=== PATIENT | male | born 1945 | race Caucasian/White ===

== ENCOUNTER 2021-04-19 09:56 | Day surgery (SDC) | payer MEDICARE, SELFPAY ==
[2021-04-13 10:33] VITALS: BMI 31.4
--- NOTE | 2021-04-16 11:04 | P.CONAN_ITS ---
Documented by User: Sherrill Garcia 04/16/21 11:05 HPI - Anesthesia Eval Consult details Narrative: 76yo M for Upper Endoscopy and Colonoscopy [facility] Past Medical History Medical History Elevated cholesterol GERD (gastroesophageal reflux disease) HTN (hypertension) Hx of migraines Snores Surgical History Surgical History History of esophagogastroduodenoscopy (EGD) History of incisional hernia repair History of umbilical hernia repair Hx of appendectomy Hx of cholecystectomy Hx of colonoscopy Hx of eye surgery Hx of hemorrhoidectomy Hx of varicose vein ligation and stripping Social History Social History Patient Tobacco Use Status: Former Tobacco user Advance Directives: No Advance Directives Information Provided: No Advance Directives on File: No Meds Allergies Allergy/AdvReac Type Severity Reaction Status Date / Time No Known Allergies Allergy Unverified 06/18/20 15:59 [No Known Allergies*] Home Medications Medication Instructions Recorded Confirmed Last Taken Type amitriptyline 10 mg PO BEDTIME 04/13/21 04/13/21 Unknown History amlodipine 1 tab PO DAILY 04/13/21 04/13/21 Unknown History atorvastatin 1 tab PO DAILY 04/13/21 04/13/21 Unknown History clobetasol TOPICAL BID PRN 04/13/21 Unknown History labetalol 1 tab PO BID 04/13/21 04/13/21 04/19/21 07:00 History losartan-hydrochlorothiazide 1 tab PO DAILY 04/13/21 04/13/21 Unknown History pantoprazole 1 tab PO BID 04/13/21 04/19/21 Unknown History sucralfate 1 tab PO QID 04/13/21 04/13/21 Unknown History Exam Exam Date and Time: April 16, 2021 1104 Height,Weight and Vital Signs: Height 5 ft 10.5 in Weight 100.698 kg Assessment and Plan Assessment Anesthesia Assessment: Chart Reviewed Documented by User: Artie Espino 04/19/21 11:34 [facility] Past Medical History Medical History Elevated cholesterol GERD (gastroesophageal reflux disease) HTN (hypertension) Hx of migraines Snores Surgical History Surgical History History of esophagogastroduodenoscopy (EGD) History of incisional hernia repair History of umbilical hernia repair Hx of appendectomy Hx of cholecystectomy Hx of colonoscopy Hx of eye surgery Hx of hemorrhoidectomy Hx of varicose vein ligation and stripping Social History Social History Patient Tobacco Use Status: Former Tobacco user Advance Directives: No Advance Directives Information Provided: No Advance Directives on File: No Meds Allergies Allergy/AdvReac Type Severity Reaction Status Date / Time No Known Allergies Allergy Unverified 06/18/20 15:59 [No Known Allergies*] Home Medications Medication Instructions Recorded Confirmed Last Taken Type amitriptyline 10 mg PO BEDTIME 04/13/21 04/13/21 Unknown History amlodipine 1 tab PO DAILY 04/13/21 04/13/21 Unknown History atorvastatin 1 tab PO DAILY 04/13/21 04/13/21 Unknown History clobetasol TOPICAL BID PRN 04/13/21 Unknown History labetalol 1 tab PO BID 04/13/21 04/13/21 04/19/21 07:00 History losartan-hydrochlorothiazide 1 tab PO DAILY 04/13/21 04/13/21 Unknown History pantoprazole 1 tab PO BID 04/13/21 04/19/21 Unknown History sucralfate 1 tab PO QID 04/13/21 04/13/21 Unknown History Exam Airway Mallampati Class: III TM Dist: >3cm Neck ROM: Full Denture: Upper Heart: [id number] Lungs: cta b/l Assessment and Plan Assessment Anesthesia Assessment: Anesthesia Plan Discussed, PAT Visit and Chart Reviewed Final Anesthetic Review NPO: Yes ASA Class: III Final Preanesthetic Review: No Changes in Pt Med Stat, Meds/Allgs Chart Reviewed, Consent Obtained/Reviewed and Anes Risks/Benef Reviewed Patient Risk: Intermediate Procedure Risk: Low Assessment/Block/Sedation in SS: Assess/Block/Sedation-SS Anesthetic Plan Anesthetic Plan: MAC: and Agree w/ Assess. and Plan Disposition: Standard PACU
[2021-04-19 10:58] VITALS: BP 135/89; PULSE 64; RESP 16; TEMP 36.6; O2SAT 98
[2021-04-19] MEDS: Lactated Ringers 1,000 ML 100 ML IVCONT (11:09)
[2021-04-19 13:27] VITALS: BP 104/59; PULSE 58; RESP 12; TEMP 36.1; O2SAT 98
--- NOTE | 2021-04-19 13:30 | PM.OP ---
Brief Operative Note Date of Service: 04/19/21 Pre-op diagnosis: Chest discomfort, Screening Post-op diagnosis: other (Gastritis and Gastric polyps, Colon polyps) Procedure: EGD with biopsy, Colonoscopy to the cecum with snare polypectomy and Bx/removal of polyps Surgeon: Cruz Tam Anesthesia: MAC Was an [employer] Tele[employer] Clerk used for this Procedure?: No Estimated blood loss (mL): 4.0 Pathology: other (A. Gastric antrum B. Gastric polyps C. Ascending colon polyps D. Polyp near ICV) Condition: stable Disposition: PACU
--- NOTE | 2021-04-19 13:35 | PC.NURSE ---
DR. SHARP AT BEDSIDE. SPOKE WITH PATIENT REGARDING HIS PROCEDURE. PT AROUSABLE, BUT DROWSY. VSS. NO RESPIRATORY DISTRESS. NO SOB.
[2021-04-19 13:42] VITALS: BP 132/71; PULSE 59; RESP 16; TEMP 36.4; O2SAT 94
--- NOTE | 2021-04-19 14:06 | PC.NURSE ---
PATIEINT WITH A LARGE AND FIRM ABDOMINAL AREA. PT REPORTS SOME PAIN/DISCOMFORT. PT PLACED ON LEFT SIDE AND HAS BEEN HAVING FLATULENCE. NO RECTAL BLEEDING.
[2021-04-19 14:10] VITALS: BP 137/63; PULSE 58; RESP 18; O2SAT 98
--- NOTE | 2021-04-19 14:13 | PC.NURSE ---
PATIENT CONTINUES TO HAVE FLATULENCE AND STATES FEELING BETTER.
--- NOTE | 2021-04-19 15:04 | OP_ITS ---
SURGEON: Cruz Tam MD INDICATIONS: The patient presents for evaluation of colorectal cancer screening, personal history of tubular adenoma of the colon, and chest discomfort. Full consent has been obtained from him for this, including risks of bleeding and perforation. PREOPERATIVE DIAGNOSIS: POSTOPERATIVE DIAGNOSIS: PROCEDURE PERFORMED: Esophagogastroduodenoscopy with biopsies, and colonoscopy to the cecum with snare polypectomy, and biopsy and removal of polyp. ESTIMATED BLOOD LOSS: COMPLICATIONS: ANESTHESIA: Monitored anesthesia care. ASSISTANTS: SPECIMENS: PREOPERATIVE DIAGNOSES: Chest discomfort, personal history of tubular adenoma of the colon, and colorectal cancer screening. POSTOPERATIVE DIAGNOSES: Chest discomfort, personal history of tubular adenoma of the colon, and colorectal cancer screening, small hiatal hernia, gastric polyps, mild gastritis, colon polyps, diverticulosis and internal hemorrhoids. DESCRIPTION OF PROCEDURE: The patient was placed in the left lateral decubitus position. The Olympus video gastroscope was passed in the posterior oropharynx and upper esophagus under direct vision. The scope was passed slowly into the distal esophagus. The gastroesophageal junction appeared normal at 38 cm. There was no sign of any esophagitis nor Polk's mucosa. The scope entered into the stomach. There was a small hiatal hernia. The scope was advanced to pylorus and the duodenum was cannulated to the descending portion. The duodenum including the bulb appeared normal without mass or ulceration. The scope was withdrawn back into the stomach. The gastric antrum had some mild areas of erythema and edema, but no erosions nor ulceration. There was good peristalsis. Scope was retroflexed visualizing the proximal stomach carefully which appeared normal, without any sign of mass or ulceration, other than multiple hyperplastic appearing gastric polyps. Scope was straightened. Biopsies were obtained in the gastric antrum. I also obtained biopsies from some of the gastric polyps. The scope was withdrawn back into the esophagus. The esophageal mucosa appeared completely normal. The scope was withdrawn from the patient. He was turned around for the colonoscopy. The digital rectal exam revealed no abnormalities. The Olympus video pediatric colonoscope was entered into the rectum and advanced to the cecum with the assistance of abdominal wall pressure. Once in the cecum, I did identify normal-appearing cecal pouch with appendiceal orifice and a normal-appearing ileocecal valve. The entire cecum was well visualized and appeared normal. Adjacent to the ileocecal valve, was an approximately 10 mm polyp, which was initially biopsied, and then snared and recovered by suction. The polypectomy site appeared clean, without any sign of residual polyp nor bleeding. The scope was then slowly withdrawn assessing all mucosal surfaces carefully. Preparation was excellent. In the ascending colon, were 2 flat approximately 5 mm polyps, which were each biopsied and completely removed and placed in the same container. Also, in the ascending colon, was a larger approximately 12 to 15 mm polyp, which was snared and removed, and then recovered with the retrieval net. The scope was advanced back to the polypectomy site, which appeared to have some residual polyp tissue, which was then removed by snare polypectomy again. Post polypectomy, there did not appear to be any residual polyp nor bleeding. I did not visualize any other polyps, colitis, nor angiodysplasia. There was a moderate amount of sigmoid diverticulosis. In the rectum, the scope was retroflexed visualizing internal hemorrhoids, but no other pathology. The rectal mucosa appeared normal. Scope was straightened out and withdrawn from the patient. He tolerated both procedures well and was returned to the recovery area in stable condition. IMPRESSION: 1. Colon polyps. 2. Diverticulosis. 3. Internal hemorrhoids. 4. Small hiatal hernia. 5. Gastric polyps. 6. Mild gastritis. PLAN: The results of the biopsy will be checked. Given his age and the colonoscopy findings, he may not need any further screening colonoscopies since he would be 81 at the time of his next colonoscopy. He did recently stop pantoprazole as that was not helping his chest discomfort and I did not feel that represented reflux. He can stay off that, but if symptoms of the chest discomfort worsen and he thinks it is reflux, he is going to go back on that. He was advised not to use any aspirin and NSAIDs for 1 week. This has been discussed with his . MD GRABIEL Barnhart/FABRIZIO / [id number]
== END 2021-04-19 14:50 | disposition home or self-care (01) ==
PROVIDERS: PCP Internal Medicine; Visit Provider Internal Medicine
PROC: (CPT 45385; principal; 2021-04-19 11:20)
DX: Z12.11 Encounter for screening for malignant neoplasm of colon (principal); Z86.010 Personal history of colon polyps; D12.0 Benign neoplasm of cecum; D12.2 Benign neoplasm of ascending colon; K57.30 Diverticulosis of large intestine without perforation or abscess without bleeding; K64.8 Other hemorrhoids; K21.9 Gastro-esophageal reflux disease without esophagitis; K29.50 Unspecified chronic gastritis without bleeding; K31.7 Polyp of stomach and duodenum; K44.9 Diaphragmatic hernia without obstruction or gangrene; I10 Essential (primary) hypertension; E78.00 Pure hypercholesterolemia, unspecified; R06.83 Snoring
CPT/HCPCS: 45385; 45380; 43239; 88305; 88342